=== PATIENT | male | born 1945 | race Caucasian/White ===

== ENCOUNTER 2020-09-25 20:57 | Emergency (ER) | payer MEDICARE, OTHER, SELFPAY ==
[2020-09-25 21:05] VITALS: BP 159/67; PULSE 78; RESP 18; TEMP 36.4; O2SAT 97; BMI 32.3
--- NOTE | 2020-09-25 23:12 | ED_ITS ---
HPI - Abdominal Pain General Chief Complaint: Abdominal Pain Stated Complaint: Abdominal pain Time Seen by Provider: 09/25/20 22:58 Source: patient Mode of arrival: ambulatory Limitations: no limitations History of Present Illness HPI narrative: Patient was coughing hard and noticed hernia on the right inguinal area which she had in the past but feels that is getting bigger no significant pain no vomiting no difficulty urination Related Data Previous Rx's Medication Instructions Recorded codeine-guaifenesin 5 ml PO Q6H PRN #237 ml 09/26/20 Allergies Allergy/AdvReac Type Severity Reaction Status Date / Time No Known Allergies Allergy Verified 09/25/20 21:10 Review of Systems Review of Systems Yes all other systems are reviewed and are negative Physical Exam Vital Signs: Vital Signs: Last Vital Signs Temp 98.5 F 09/25/20 23:30 Pulse 64 09/25/20 23:30 Resp 16 09/25/20 23:30 BP 137/56 L 09/25/20 23:30 Pulse Ox 99 09/25/20 23:30 Body Mass Index 32.3 Appearance: Alert. Oriented X3. No acute distress. Eyes: PERRLA, No Nystagmus ENT: Pharynx normal. Oral Mucosa moist Neck: Normal inspection. Neck supple. CVS: Normal heart rate and rhythm. Pulses normal. Respiratory: No respiratory distress. Equal air entry bilateral, no wheezing/rales/rhonchi Abdomen: Soft and nontender. Bowel sounds are present, no mass palpable, no CVA tenderness small right-sided inguinal hernia reducible nontender Skin: Skin warm and dry. Normal skin color. Normal skin turgor. Extremities: No lower extremity edema. No calf tenderness Neuro: Oriented X 3. No motor deficit. No sensory deficit. MDM - Abdominal Pain Lab Data Attestation: I reviewed the patient's lab results. Labs: Lab Results 09/25/20 Range/Units 23:32 COVID-19 (JEFFREY) Negative (Negative) COVID-19 Clin Com See Note Discharge Plan Discharge Clinical Impression: Inguinal hernia of right side without obstruction or gangrene Patient Disposition: Home, Self-Care Instructions: Inguinal Hernia (ED) Additional Instructions: Avoid straining. Follow-up with the surgeon. Report to the ER if increased swelling or pain at hernia site Push your hernia back as soon as it comes out Prescriptions: New codeine-guaifenesin 10-100 mg/5 mL liquid 5 ml PO Q6H PRN (Reason: cough) Qty: 237 RF: 0 Interventions: ED Discharge Assessment Last Done: 09/26/20 00:06 Discharge Date/Time: 09/26/20 00:20 COUNTS INCLUDE 234 BEDS AT THE [facility] Past Medical History Medical History Abdominal hernia Diabetes HTN (hypertension) Hypercholesteremia Social History Social History Smoked in Last 30 Days: No Use of substances other than those prescribed or required for medical reasons: No Advance Directives: No
[2020-09-25 23:30] VITALS: BP 137/56; PULSE 64; RESP 16; TEMP 36.9; O2SAT 99
--- NOTE | 2020-09-25 23:48 | PC.NURSE ---
Symptoms improved. provider in to assess pt. awaiting covid swab result, plan is for pt to be discharge home.
[2020-09-25 23:52] LABS: COVID-19 Test Negative (Negative); IDNOW Serial# 9DD0AD1C
[2020-09-26] MEDS: guaiFEN/Codeine SF 200/20/10ML 10 ML LIQUID 5 ML PO (00:14)
== END 2020-09-26 00:20 | disposition home or self-care (01) ==
PROVIDERS: Emergency Provider Internal Medicine
DX: R10.9 Unspecified abdominal pain (principal); Z20.822 Contact with and (suspected) exposure to COVID-19
CPT/HCPCS: 36415; 87635; 99284

== ENCOUNTER 2021-06-25 23:23 | Emergency (ER) | payer MEDICARE, OTHER, SELFPAY ==
--- NOTE | ~2021-06-25 | CT_ITS ---
EXAMINATION: CT THORACIC SPINE WITHOUT CONTRAST CT LUMBAR SPINE WITHOUT CONTRAST CLINICAL INFORMATION: Multiple falls. Rule out fracture. COMPARISON: None TECHNIQUE: Multidetector helical imaging acquired in the axial plane with generation of reformatted acquisitions. FINDINGS: No acute fracture identified. Thoracic kyphosis noted. No paraspinal soft tissue inflammatory changes are seen. Multilevel bridging endplate osteophytes visible. No high-grade central canal stenosis evident. No large disc protrusion is seen on this limited noncontrast CT examination. There is mild central canal stenosis due to a degenerative disc bulge and hypertrophic facet arthropathy at the L4-L5 level with moderate right foraminal encroachment. There is bridging ossification between the spinous processes throughout the mid to lower thoracic spine. Left lateralized endplate spurring and facet arthropathy encroach upon the left subarticular zone at the L5-S1 level with mild mass effect upon the left S1 nerve root, also contributing to moderate left foraminal encroachment without central canal stenosis. There are [id number] degenerative changes of the sacroiliac joints. The imaged portions of the bony pelvis are otherwise unremarkable. Moderate degenerative disc disease noted at the lower cervical levels. The visualized portions of the lungs demonstrate mild dependent subsegmental atelectatic changes. There is an incompletely visualized 4 mm ground-glass nodule in the right lower lobe. A small calcified granuloma is noted in the left upper lobe. There are nonspecific calcifications in the multifidus musculature throughout the thoracic levels. There is heterogeneous attenuation in the prostate gland which is enlarged, measuring 6.5 x 4.7 cm in diameter in the axial plane. Findings may be due to a prior TURP. No suspicious lytic or blastic osseous lesions are seen. CT/CT thoracic spine wo con IMPRESSION: Spondylitic changes without evidence of acute osseous injury. Thoracic kyphosis without central canal stenosis. No large disc protrusions. Mild central canal stenosis and moderate right foraminal narrowing at the L4-L5 level. Bulky endplate ossification lateralized to the left side with facet spurring at L5-S1 mildly impressing upon the left S1 nerve root with moderate left foraminal narrowing. Nonspecific 4 mm ground-glass nodule in the right lower lobe. Subcentimeter calcified granuloma in the left upper lobe. Reference: The Fleischner Society recommendations for management of incidentally detected pulmonary nodules in adults age 35 and greater are based on average nodule size and patient risk category. The recommendations do not apply to lung cancer screening, patients with immunosuppression, or patients with known primary cancer. Ground-glass Nodule: Average size < 6 mm: No routine follow up. Heterogeneous enlargement of the prostate gland. Recommend correlation with a serum PSA. Query as to whether the patient has a history of a prior TURP, given imaging findings.
--- NOTE | ~2021-06-25 | CT_ITS ---
EXAMINATION: CT HEAD WITHOUT CONTRAST CT CERVICAL SPINE WITHOUT CONTRAST CLINICAL INFORMATION: Fall. Trauma. COMPARISON: None. TECHNIQUE: Multidetector CT imaging of the head and cervical spine was performed without the use of intravenous contrast. Multiplanar reformats are reviewed. This CT examination was performed using dose optimization techniques as appropriate, variously including the following: *Automated exposure control *Adjustment of mA and/or kV according to patient size (this includes techniques or standardized protocols for targeted exams where dose is matched to indication/reason for exam; i.e. extremities or head) *Use of iterative reconstruction technique DLP: 1404 mGy-cm. FINDINGS: There is no evidence of acute intracranial hemorrhage or territorial infarction. No abnormal mass effect or midline shift is seen. Leone to white matter differentiation is well preserved. No extra-axial fluid collections are identified. There is generalized brain parenchymal volume loss, with slight disproportionate prominence of the ventricular system with respect to the cortical sulci/fissures and mild narrowing of the callosal angle. Moderate patchy subcortical and periventricular white matter low-attenuation changes, statistically related to chronic microangiopathic gliosis. Cavernous carotid calcifications. The osseous structures and soft tissues are normal. The mastoid air cells and visualized portions of the paranasal sinuses are well-aerated. Atlantooccipital alignment is maintained. The vertebral bodies and posterior elements align normally. No acute fracture or subluxation. Vertebral body heights are maintained.Prominent endplate ossified present from C4 through C7 with accompanying uncovertebral arthrosis. The paraspinal soft tissues are unremarkable. The imaged lung apices are clear CT/CT cervical spine wo con IMPRESSION: No acute intracranial pathology. No cervical spine fracture or malalignment. Moderate chronic white matter small vessel ischemic changes. 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
--- NOTE | ~2021-06-25 | CT_ITS ---
EXAMINATION: CT THORACIC SPINE WITHOUT CONTRAST CT LUMBAR SPINE WITHOUT CONTRAST CLINICAL INFORMATION: Multiple falls. Rule out fracture. COMPARISON: None TECHNIQUE: Multidetector helical imaging acquired in the axial plane with generation of reformatted acquisitions. FINDINGS: No acute fracture identified. Thoracic kyphosis noted. No paraspinal soft tissue inflammatory changes are seen. Multilevel bridging endplate osteophytes visible. No high-grade central canal stenosis evident. No large disc protrusion is seen on this limited noncontrast CT examination. There is mild central canal stenosis due to a degenerative disc bulge and hypertrophic facet arthropathy at the L4-L5 level with moderate right foraminal encroachment. There is bridging ossification between the spinous processes throughout the mid to lower thoracic spine. Left lateralized endplate spurring and facet arthropathy encroach upon the left subarticular zone at the L5-S1 level with mild mass effect upon the left S1 nerve root, also contributing to moderate left foraminal encroachment without central canal stenosis. There are [id number]-[id number] degenerative changes of the sacroiliac joints. The imaged portions of the bony pelvis are otherwise unremarkable. Moderate degenerative disc disease noted at the lower cervical levels. The visualized portions of the lungs demonstrate mild dependent subsegmental atelectatic changes. There is an incompletely visualized 4 mm ground-glass nodule in the right lower lobe. A small calcified granuloma is noted in the left upper lobe. There are nonspecific calcifications in the multifidus musculature throughout the thoracic levels. There is heterogeneous attenuation in the prostate gland which is enlarged, measuring 6.5 x 4.7 cm in diameter in the axial plane. Findings may be due to a prior TURP. No suspicious lytic or blastic osseous lesions are seen. CT/CT lumbar spine wo con IMPRESSION: Spondylitic changes without evidence of acute osseous injury. Thoracic kyphosis without central canal stenosis. No large disc protrusions. Mild central canal stenosis and moderate right foraminal narrowing at the L4-L5 level. Bulky endplate ossification lateralized to the left side with facet spurring at L5-S1 mildly impressing upon the left S1 nerve root with moderate left foraminal narrowing. Nonspecific 4 mm ground-glass nodule in the right lower lobe. Subcentimeter calcified granuloma in the left upper lobe. Reference: The Fleischner Society recommendations for management of incidentally detected pulmonary nodules in adults age 35 and greater are based on average nodule size and patient risk category. The recommendations do not apply to lung cancer screening, patients with immunosuppression, or patients with known primary cancer. Ground-glass Nodule: Average size < 6 mm: No routine follow up. Heterogeneous enlargement of the prostate gland. Recommend correlation with a serum PSA. Query as to whether the patient has a history of a prior TURP, given imaging findings.
[2021-06-25 23:58] VITALS: BP 175/89; BP 190/90; PULSE 59; PULSE 78; RESP 16; TEMP 37.2; O2SAT 92; O2SAT 95; BMI 25.5
--- NOTE | 2021-06-26 01:22 | PC.NURSE ---
REPORT AND CARE TRANSFERED TO SUNNY FU.
--- NOTE | 2021-06-26 03:40 | PC.NURSE ---
Pt off to CT on hospital bed.
--- NOTE | 2021-06-26 04:08 | PC.NURSE ---
Pt returns from CT @ this time, awaiting primary MD eval.
--- NOTE | 2021-06-26 04:54 | PC.NURSE ---
Per MD, okay to remove cervical collar as cervical spine CT was negative for fractures. Collar removed, pt assisted into a POC, provided with warm blankets. Awaiting primary MD eval.
--- NOTE | 2021-06-26 05:09 | PC.NURSE ---
at bedside for primary eval.
[2021-06-26 06:10] VITALS: BP 163/80; PULSE 71; RESP 14
[2021-06-26] MEDS: Cyclobenzaprine HCl 5 MG TABLET PO (06:56)
[2021-06-26] MEDS: Ketorolac Tromethamine 30 MG/ML VIAL 15 MG IVPUSH (06:56)
--- NOTE | 2021-06-26 07:44 | ECG_ITS ---
Test Reason : WEAKNESS Blood Pressure : / mmHG Vent. Rate : 072 BPM Atrial Rate : 072 BPM P-R Int : 186 ms QRS Dur : 078 ms QT Int : 364 ms P-R-T Axes : 000 -31 100 degrees QTc Int : 398 ms Normal sinus rhythm Left axis deviation Nonspecific ST and T wave abnormality Abnormal ECG No previous ECGs available Referred By: Brennan Guillory Electronically Signed By:KATIE TURNER
--- NOTE | 2021-06-26 07:46 | ED_ITS ---
HPI - Fall General Chief Complaint: Fall <Brennan Guillory MD - Last Filed: 06/26/21 07:54> Stated Complaint: FALL <Brennan Guillory MD - Last Filed: 06/26/21 07:54> Time Seen by Provider: 06/26/21 06:42 <Brennan Guillory MD - Last Filed: 06/26/21 07:54> Source: patient <Brennan Guillory MD - Last Filed: 06/26/21 07:54> Mode of arrival: EMS <Brennan Guillory MD - Last Filed: 06/26/21 07:54> Limitations: no limitations <Brennan Guillory MD - Last Filed: 06/26/21 07:54> History of Present Illness HPI Narrative: 75-year-old male who presents emergency department for evaluation of pain after a fall. Patient states that 2 days prior he was in his garage, he walks with a cane, he lost his balance and fell. He states he fell backwards landing on his back. He denied any head injury or loss of consciousness. He states that since that time he has been having pain diffusely throughout his back. Prior to coming to the emergency department he states that he was getting ready to go to bed. States he shot his light off, he was walking with his cane, he lost his balance and again fell backwards. States that he landed on his right side. He denied any head injury. He states that he developed moderate to severe pain in his mid and lower back. He states that he has episodes of spasm and he states the pain is 6/10 at its worst. He denied any headache, nausea, vomiting, chest pain, shortness of breath. He has not noticed any blood in his stool or dark black stools. <Brennan Guillory MD - Last Filed: 06/26/21 07:54> Related Data Home Medications: Previous Rx's Medication Instructions Recorded codeine 10 mg-guaifenesin 100 mg/5 5 ml PO Q6H PRN #237 ml 09/26/ mL oral liquid cyclobenzaprine 5 mg tablet 5 mg PO BEDTIME PRN #7 tab 06/26/21 <Brennan Guillory MD - Last Filed: 06/26/21 07:54> Allergies/Adverse Reactions: Allergies Allergy/AdvReac Type Severity Reaction Status Date / Time No Known Allergies Allergy Verified 09/25/20 21:10 <Brennan Guillory MD - Last Filed: 06/26/21 07:54> Review of Systems Review of Systems: Yes all other systems are reviewed and are negative <Brennan Guillory MD - Last Filed: 06/26/21 07:54> [facility] Past Medical History [facility] Narrative: Past medical history: See below, he also states that he has Alzheimer's, bipolar disease. Past surgical history: Hernia repair x3, pancreatic surgery, prostate surgery. Social history: He denies tobacco, alcohol and drug use. <Brennan Guillory MD - Last Filed: 06/26/21 07:54> Medical History: Medical History Abdominal hernia Diabetes HTN (hypertension) Hypercholesteremia <Brennan Guillory MD - Last Filed: 06/26/21 07:54> Social History Social History: Social History Advance Directives: No <Brennan Guillory MD - Last Filed: 06/26/21 07:54> Physical Exam Vital Signs: Vital Signs: Last Vital Signs Temp 98.4 F 06/26/21 16:03 Pulse 76 06/26/21 16:03 Resp 16 06/26/21 16:03 BP 101/71 06/26/21 16:03 Pulse Ox 96 06/26/21 16:03 BMI result Body Mass Index 25.5 <Brennan Guillory MD - Last Filed: 06/26/21 07:54> Vital Signs: Last Vital Signs Temp 98.4 F 06/26/21 16:03 Pulse 76 06/26/21 16:03 Resp 16 06/26/21 16:03 BP 101/71 06/26/21 16:03 Pulse Ox 96 06/26/21 16:03 BMI result Body Mass Index 25.5 <Sweetie Foster MD - Last Filed: 06/26/21 16:40> Const: General: cooperative and no acute distress <MD Logan Morales Last Filed: 06/26/21 07:54> Orientation/consciousness: oriented to person and oriented to place <MD Logan Carr Last Filed: 06/26/21 07:54> Limitations: no limitations <MD Logan Morales Last Filed: 06/26/21 07:54> HENMT: Head: Yes normal to inspection, Yes normocephalic and Yes atraumatic <MD Logan Morales Last Filed: 06/26/21 07:54> Ears: external ears normal <MD Logan Morales Last Filed: 06/26/21 07:54> General nose exam: Normal external nose present <MD Logan Morales Last Filed: 06/26/21 07:54> Face and sinus: Yes normal facial exam <MD Logan Morales Last Filed: 06/26/21 07:54> Mouth: Normal oral and palatal mucosa present <MD Logan Morales Last Filed: 06/26/21 07:54> Throat: Yes posterior oropharynx normal <MD Logan Morales Last Filed: 06/26/21 07:54> Eyes: General: appearance normal, both eyes and all related structures <MD Logan Morales Last Filed: 06/26/21 07:54> Pupils: Equal, round and reactive pupils present <MD Logan Morales Last Filed: 06/26/21 07:54> Neck: Neck: Yes normal visual inspection, Yes no lymphadenopathy, Yes trachea midline and Yes supple <MD Logan Morales Last Filed: 06/26/21 07:54> Chest: Chest palpation & inspection: normal inspection of the chest and normal palpation of entire chest wall <MD Logan Morales Last Filed: 06/26/21 07:54> Resp: Effort & Inspection: normal respiratory effort and able to speak in c omplete sentences <MD Logan Morales Last Filed: 06/26/21 07:54> Auscultation: clear to auscultation bilaterally <Brennan Guillory MD - Last Filed: 06/26/21 07:54> Cardio: Rate: regular rate <Brennan Guillory MD - Last Filed: 06/26/21 07:54> Rhythm: regular rhythm <MD Logan Morales Last Filed: 06/26/21 07:54> Heart sounds: S1 normal heart sound present, S2 normal heart sound present and no murmurs <MD Logan Morales Last Filed: 06/26/21 07:54> GI: Inspection: Yes normal to inspection <MD Logan Morales Last Filed: 06/26/21 07:54> Palpation (GI): Soft to palpation, nontender and no guarding <Brennan Guillory MD - Last Filed: 06/26/21 07:54> Auscultation: normal bowel sounds <MD Logan Morales Last Filed: 06/26/21 07:54> Back/Spine/Pelvis: Other: Patient has diffuse tenderness with palpation of his thoracic and lumbar spine, he does have tenderness palpation of the vertebral spine as well, there is spasm of his lumbar paraspinal muscles. <Brennan Guillory MD - Last Filed: 06/26/21 07:54> Skin: General skin exam: no rashes or lesions noted <MD Logan Morales Last Filed: 06/26/21 07:54> Neuro: General: oriented to person and oriented to place <MD Logan Morales Last Filed: 06/26/21 07:54> Cranial nerves: Yes CN's II-XII intact bilaterally and Yes Equal, round and reactive pupils present <MD Logan Morales Last Filed: 06/26/21 07:54> Cognition (Neuro): normal cognition <MD Logan Morales Last Filed: 06/26/21 07:54> Motor exam (neuro): 5/5 motor strength present throughout <MD Logan Morales Last Filed: 06/26/21 07:54> Extrem: General: Yes normal to inspection <MD Logan Morales Last Filed: 06/26/21 07:54> Psych: Appearance: grossly normal <Brennan Guillory MD - Last Filed: 06/26/21 07:54> Speech and movement: Normal speech and movement present <Brennan Guillory MD - Last Filed: 06/26/21 07:54> Affect: normal affect <Brennan Guillory MD - Last Filed: 06/26/21 07:54> Attitude: cooperative <Brennan Guillory MD - Last Filed: 06/26/21 07:54> Thought process: Normal thought process present <Brennan Guillory MD - Last Filed: 06/26/21 07:54> Thought content: Normal thought content present <Brennan Guillory MD - Last Filed: 06/26/21 07:54> Course Course Course Narrative: 75-year-old male who presents emergency department for evaluation of a fall 2 days prior and a fall prior to coming to the emergency department. The patient states that these falls or secondary to him using a cane in losing his balance. The patient injured his back 2 days ago and states that he again injured his back when he fell prior to coming to the emergency department. Physical examination did revealed diffuse tenderness with palpation of his thoracic and lumbar spine. CT scan of the head and cervical spine revealed no acute fractures. I did order laboratory evaluation to include CBC, CMP, troponin, COVID-19 12 EKG. I also ordered a CT scan of the patient's thoracic and lumbar spine. Patient's pain was treated with Toradol 15 mg IV and Flexeril 5 mg orally. At the end of my shift, 7:51 a.m. the patient's care was turned over to my colleague, Dr. Sweetie Foster. <Brennan Guillory MD - Last Filed: 06/26/21 07:54> 75-year-old male who presents emergency department for evaluation of a fall 2 days prior and a fall prior to coming to the emergency department. The patient states that these falls or secondary to him using a cane in losing his balance. The patient injured his back 2 days ago and states that he again injured his back when he fell prior to coming to the emergency department. Physical examination did revealed diffuse tenderness with palpation of his thoracic and lumbar spine. CT scan of the head and cervical spine revealed no acute fractures. I did order laboratory evaluation to include CBC, CMP, troponin, COVID-19 12 EKG. I also ordered a CT scan of the patient's thoracic and lumbar spine. Patient's pain was treated with Toradol 15 mg IV and Flexeril 5 mg orally. At the end of my shift, 7:51 a.m. the patient's care was turned over to my colleague, Dr. Sweetie Foster. I received sign-out from Dr. Guillory. Patient is eating better, pain in his decrease, 06/21. No acute findings on CT scan. Troponin 2. Pending due to Staff issues in the ED and pt being a difficult stick, and lab issues, the 2nd troponin took over 6 hrs to obtain. Pt has no CP, trop did increse but remains within normal limits <35. Patient remains asymptomatic, complaining of mild muscle spasms but otherwise no chest pain or shortness of breath. <Sweetie Foster MD - Last Filed: 06/26/21 16:40> MDM - Fall Lab Data Result diagrams: : 06/26/21 07:55 06/26/21 07:55 <Brennan Guillory MD - Last Filed: 06/26/21 07:54> Labs: Lab Results 06/26/21 06/26/21 06/26/21 Range/Units 07:55 07:55 07:55 WBC 8.2 (4.8-10.8) X10*3/uL RBC 4.58 L (4.60-5.80) X10*6/uL Hgb 14.7 (14.0-18.0) g/dl Hct 42.0 (42.0-52.0) % MCV 91.7 (80.0-98.0) fL MCH 32.1 (27.0-33.0) pg MCHC 35.0 (31.0-36.0) g/dl RDW 11.9 (11.0-16.0) % Plt Count 164 (160-400) X10*3/uL MPV 11.0 (9.4-12.4) fL Immature Gran % (Auto) 0.4 (0.0-0.4) % Neut % (Auto) 74.7 H (45-73) % Lymph % (Auto) 13.3 L (20-40) % Treasure % (Auto) 11.2 H (2-11) % Eos % (Auto) 0.2 (0-4) % Baso % (Auto) 0.2 (0-2) % Lymph # (Auto) 1.1 L (1.2-4.9) X10*3/uL Treasure # (Auto) 0.9 (0.1-1.2) X10*3/uL Eos # (Auto) 0.0 (0.0-0.4) X10*3/uL Baso # (Auto) 0.0 (0.0-0.2) X10*3/uL Abs Immat Gran (auto) 0.03 (0.00-0.03) X10*3/uL Absolute Neuts (auto) 6.1 (2.0-8.3) x10*3/uL Absolute Nucleated RBC 0.000 (0.0-0.012) X10*3/uL Nucleated RBC % (auto) 0.0 (0.0-0.2) /100WBC Sodium 139 (135-145) mmol/L Potassium 4.4 (3.3-5.1) mmol/L Chloride 103 (96-108) mmol/L Carbon Dioxide 26 (22-29) mmol/L Anion Gap 14 (12-20) BUN 14 (9-16) mg/dL Creatinine 1.11 (0.5-1.4) mg/dL Estim Creat Clear Calc 55.6 Estimated GFR > 60 Random Glucose 178 H (60-115) mg/dL Calcium 10.1 (8.4-10.2) mg/dL Total Bilirubin 0.9 (0.0-1.0) mg/dL AST 19 (5-37) U/L ALT 15 (0-40) U/L Alkaline Phosphatase 44 (39-117) U/L Troponin I High Sens 17.5 (<3.5-35.0) ng/L Total Protein 7.2 (6.5-8.0) g/dL Albumin 4.1 (3.5-5.0) g/dL Urine Color Urine Appearance Urine pH (5.0-8.0) Ur Specific [place] (1.005-1.025) Urine Protein (NEG-TRACE) MG/DL Urine Glucose (UA) (NEG) MG/DL Urine Ketones (NEG) MG/DL Urine Blood (NEG) Urine Nitrite (NEG) Ur Leukocyte Esterase (NEG) Urine RBC (0) /HPF Urine WBC (0-4) /HPF Ur Squamous Epith Cells /LPF Urine Bacteria /LPF Urine Mucus /LPF COVID-19 ([facility]) (Negative) COVID-19 Clin Com 06/26/21 06/26/21 06/26/21 Range/Units 07:55 15:33 16:06 WBC (4.8-10.8) X10*3/uL RBC (4.60-5.80) X10*6/uL Hgb (14.0-18.0) g/dl Hct (42.0-52.0) % MCV (80.0-98.0) fL MCH (27.0-33.0) pg MCHC (31.0-36.0) g/dl RDW (11.0-16.0) % Plt Count (160-400) X10*3/uL MPV (9.4-12.4) fL Immature Gran % (Auto) (0.0-0.4) % Neut % (Auto) (45-73) % Lymph % (Auto) (20-40) % Treasure % (Auto) (2-11) % Eos % (Auto) (0-4) % Baso % (Auto) (0-2) % Lymph # (Auto) (1.2-4.9) X10*3/uL Treasure # (Auto) (0.1-1.2) X10*3/uL Eos # (Auto) (0.0-0.4) X10*3/uL Baso # (Auto) (0.0-0.2) X10*3/uL Abs Immat Gran (auto) (0.00-0.03) X10*3/uL Absolute Neuts (auto) (2.0-8.3) x10*3/uL Absolute Nucleated RBC (0.0-0.012) X10*3/uL Nucleated RBC % (auto) (0.0-0.2) /100WBC Sodium (135-145) mmol/L Potassium (3.3-5.1) mmol/L Chloride (96-108) mmol/L Carbon Dioxide (22-29) mmol/L Anion Gap (12-20) BUN (9-16) mg/dL Creatinine (0.5-1.4) mg/dL Estim Creat Clear Calc Estimated GFR Random Glucose (60-115) mg/dL Calcium (8.4-10.2) mg/dL Total Bilirubin (0.0-1.0) mg/dL AST (5-37) U/L ALT (0-40) U/L Alkaline Phosphatase (39-117) U/L Troponin I High Sens 30.0 D (<3.5-35.0) ng/L Total Protein (6.5-8.0) g/dL Albumin (3.5-5.0) g/dL Urine Color DK YELLOW Urine Appearance CLEAR Urine pH 5.5 (5.0-8.0) Ur Specific [place] >= 1.030 H (1.005-1.025) Urine Protein 2+ H (NEG-TRACE) MG/DL Urine Glucose (UA) NEG (NEG) MG/DL Urine Ketones 5 (NEG) MG/DL Urine Blood NEG (NEG) Urine Nitrite NEG (NEG) Ur Leukocyte Esterase NEG (NEG) Urine RBC 0-2 (0) /HPF Urine WBC 0 (0-4) /HPF Ur Squamous Epith Cells TRACE /LPF Urine Bacteria NONE /LPF Urine Mucus 2+ /LPF COVID-19 ([facility]) Negative (Negative) COVID-19 Clin Com See Note <Brennan Guillory MD - Last Filed: 06/26/21 07:54> Lab Results 06/26/21 06/26/21 06/26/21 Range/Units 07:55 07:55 07:55 WBC 8.2 (4.8-10.8) X10*3/uL RBC 4.58 L (4.60-5.80) X10*6/uL Hgb 14.7 (14.0-18.0) g/dl Hct 42.0 (42.0-52.0) % MCV 91.7 (80.0-98.0) fL MCH 32.1 (27.0-33.0) pg MCHC 35.0 (31.0-36.0) g/dl RDW 11.9 (11.0-16.0) % Plt Count 164 (160-400) X10*3/uL MPV 11.0 (9.4-12.4) fL Immature Gran % (Auto) 0.4 (0.0-0.4) % Neut % (Auto) 74.7 H (45-73) % Lymph % (Auto) 13.3 L (20-40) % Treasure % (Auto) 11.2 H (2-11) % Eos % (Auto) 0.2 (0-4) % Baso % (Auto) 0.2 (0-2) % Lymph # (Auto) 1.1 L (1.2-4.9) X10*3/uL Treasure # (Auto) 0.9 (0.1-1.2) X10*3/uL Eos # (Auto) 0.0 (0.0-0.4) X10*3/uL Baso # (Auto) 0.0 (0.0-0.2) X10*3/uL Abs Immat Gran (auto) 0.03 (0.00-0.03) X10*3/uL Absolute Neuts (auto) 6.1 (2.0-8.3) x10*3/uL Absolute Nucleated RBC 0.000 (0.0-0.012) X10*3/uL Nucleated RBC % (auto) 0.0 (0.0-0.2) /100WBC Sodium 139 (135-145) mmol/L Potassium 4.4 (3.3-5.1) mmol/L Chloride 103 (96-108) mmol/L Carbon Dioxide 26 (22-29) mmol/L Anion Gap 14 (12-20) BUN 14 (9-16) mg/dL Creatinine 1.11 (0.5-1.4) mg/dL Estim Creat Clear Calc 55.6 Estimated GFR > 60 Random Glucose 178 H (60-115) mg/dL Calcium 10.1 (8.4-10.2) mg/dL Total Bilirubin 0.9 (0.0-1.0) mg/dL AST 19 (5-37) U/L ALT 15 (0-40) U/L Alkaline Phosphatase 44 (39-117) U/L Troponin I High Sens 17.5 (<3.5-35.0) ng/L Total Protein 7.2 (6.5-8.0) g/dL Albumin 4.1 (3.5-5.0) g/dL Urine Color Urine Appearance Urine pH (5.0-8.0) Ur Specific [place] (1.005-1.025) Urine Protein (NEG-TRACE) MG/DL Urine Glucose (UA) (NEG) MG/DL Urine Ketones (NEG) MG/DL Urine Blood (NEG) Urine Nitrite (NEG) Ur Leukocyte Esterase (NEG) Urine RBC (0) /HPF Urine WBC (0-4) /HPF Ur Squamous Epith Cells /LPF Urine Bacteria /LPF Urine Mucus /LPF COVID-19 ([facility]) (Negative) COVID-19 Clin Com 06/26/21 06/26/21 06/26/21 Range/Units 07:55 15:33 16:06 WBC (4.8-10.8) X10*3/uL RBC (4.60-5.80) X10*6/uL Hgb (14.0-18.0) g/dl Hct (42.0-52.0) % MCV (80.0-98.0) fL MCH (27.0-33.0) pg MCHC (31.0-36.0) g/dl RDW (11.0-16.0) % Plt Count (160-400) X10*3/uL MPV (9.4-12.4) fL Immature Gran % (Auto) (0.0-0.4) % Neut % (Auto) (45-73) % Lymph % (Auto) (20-40) % Treasure % (Auto) (2-11) % Eos % (Auto) (0-4) % Baso % (Auto) (0-2) % Lymph # (Auto) (1.2-4.9) X10*3/uL [place] # (Auto) (0.1-1.2) X10*3/uL Eos # (Auto) (0.0-0.4) X10*3/uL Baso # (Auto) (0.0-0.2) X10*3/uL Abs Immat Gran (auto) (0.00-0.03) X10*3/uL Absolute Neuts (auto) (2.0-8.3) x10*3/uL Absolute Nucleated RBC (0.0-0.012) X10*3/uL Nucleated RBC % (auto) (0.0-0.2) /100WBC Sodium (135-145) mmol/L Potassium (3.3-5.1) mmol/L Chloride (96-108) mmol/L Carbon Dioxide (22-29) mmol/L Anion Gap (12-20) BUN (9-16) mg/dL Creatinine (0.5-1.4) mg/dL Estim Creat Clear Calc Estimated GFR Random Glucose (60-115) mg/dL Calcium (8.4-10.2) mg/dL Total Bilirubin (0.0-1.0) mg/dL AST (5-37) U/L ALT (0-40) U/L Alkaline Phosphatase (39-117) U/L Troponin I High Sens 30.0 D (<3.5-35.0) ng/L Total Protein (6.5-8.0) g/dL Albumin (3.5-5.0) g/dL Urine Color DK YELLOW Urine Appearance CLEAR Urine pH 5.5 (5.0-8.0) Ur Specific [place] >= 1.030 H (1.005-1.025) Urine Protein 2+ H (NEG-TRACE) MG/DL Urine Glucose (UA) NEG (NEG) MG/DL Urine Ketones 5 (NEG) MG/DL Urine Blood NEG (NEG) Urine Nitrite NEG (NEG) Ur Leukocyte Esterase NEG (NEG) Urine RBC 0-2 (0) /HPF Urine WBC 0 (0-4) /HPF Ur Squamous Epith Cells TRACE /LPF Urine Bacteria NONE /LPF Urine Mucus 2+ /LPF COVID-19 ([facility]) Negative (Negative) COVID-19 Clin Com See Note <Sweetie Foster MD - Last Filed: 06/26/21 16:40> Imaging Data Brain and cervical spine CT: Radiologist's impression: FINDINGS: There is no evidence of acute intracranial hemorrhage or territorial infarction. No abnormal mass effect or midline shift is seen. [place] to white matter differentiation is well preserved. No extra-axial fluid collections are identified. There is generalized brain parenchymal volume loss, with slight disproportionate prominence of the ventricular system with respect to the cortical sulci/fissures and mild narrowing of the callosal angle. Moderate patchy subcortical and periventricular white matter low-attenuation changes, statistically related to chronic microangiopathic gliosis. Cavernous carotid calcifications. The osseous structures and soft tissues are normal. The mastoid air cells and visualized portions of the paranasal sinuses are well-aerated. Atlantooccipital alignment is maintained. The vertebral bodies and posterior elements align normally. No acute fracture or subluxation. Vertebral body heights are maintained.Prominent endplate ossified present from C4 through C7 with accompanying uncovertebral arthrosis. The paraspinal soft tissues are unremarkable. The imaged lung apices are clear ? CT/CT cervical spine wo con IMPRESSION: No acute intracranial pathology. No cervical spine fracture or malalignment. Moderate chronic white matter small vessel ischemic changes. 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 <Sweetie Foster MD - Last Filed: 06/26/21 16:40> Thoracic and lumbar spine CT: Radiologist's impression: FINDINGS: No acute fracture identified. Thoracic kyphosis noted. No paraspinal soft tissue inflammatory changes are seen. Multilevel bridging endplate osteophytes visible. No high-grade central canal stenosis evident. No large disc protrusion is seen on this limited noncontrast CT examination. There is mild central canal stenosis due to a degenerative disc bulge and hypertrophic facet arthropathy at the L4-L5 level with moderate right foraminal encroachment. There is bridging ossification between the spinous processes throughout the mid to lower thoracic spine. Left lateralized endplate spurring and facet arthropathy encroach upon the left subarticular zone at the L5-S1 level with mild mass effect upon the left S1 nerve root, also contributing to moderate left foraminal encroachment without central canal stenosis. There are [id number] degenerative changes of the sacroiliac joints. The imaged portions of the bony pelvis are otherwise unremarkable. Moderate degenerative disc disease noted at the lower cervical levels. The visualized portions of the lungs demonstrate mild dependent subsegmental atelectatic changes. There is an incompletely visualized 4 mm ground-glass nodule in the right lower lobe. A small calcified granuloma is noted in the left upper lobe. There are nonspecific calcifications in the multifidus musculature throughout the thoracic levels. There is heterogeneous attenuation in the prostate gland which is enlarged, measuring 6.5 x 4.7 cm in diameter in the axial plane. Findings may be due to a prior TURP. No suspicious lytic or blastic osseous lesions are seen. CT/CT lumbar spine wo con IMPRESSION: Spondylitic changes without evidence of acute osseous injury. Thoracic kyphosis without central canal stenosis. No large disc protrusions. ? Mild central canal stenosis and moderate right foraminal narrowing at the L4-L5 level. Bulky endplate ossification lateralized to the left side with facet spurring at L5-S1 mildly impressing upon the left S1 nerve root with moderate left foraminal narrowing. ? Nonspecific 4 mm ground-glass nodule in the right lower lobe. Subcentimeter calcified granuloma in the left upper lobe. ? Reference: The Fleischner Society recommendations for management of incidentally detected pulmonary nodules in adults age 35 and greater are based on average nodule size and patient risk category.? The recommendations do not apply to lung cancer screening, patients with immunosuppression, or patients with known primary cancer.? ? Ground-glass Nodule: Average size < 6 mm: No routine follow up. ? Heterogeneous enlargement of the prostate gland. Recommend correlation with a serum PSA. Query as to whether the patient has a history of a prior TURP, given imaging findings. <Sweetie Foster MD - Last Filed: 06/26/21 16:40> Discharge Plan Discharge Clinical Impression: Back pain <Brennan Guillory MD - Last Filed: 06/26/21 07:54> Patient Disposition: Home, Self-Care <Brennan Guillory MD - Last Filed: 06/26/21 07:54> Instructions: Fall Prevention for Older Adults (ED), Back Pain (ED) <Brennan Guillory MD - Last Filed: 06/26/21 07:54> Additional Instructions: Please follow-up with your primary care physician tomorrow. If you have any worsening or new symptoms, please return to the emergency room or call 911 <Brennan Guillory MD - Last Filed: 06/26/21 07:54> Prescriptions: New cyclobenzaprine 5 mg tablet 5 mg PO BEDTIME PRN (Reason: muscle spasm) Qty: 7 RF: 0 No Action codeine-guaifenesin 10-100 mg/5 mL liquid 5 ml PO Q6H PRN (Reason: cough) Qty: 237 RF: 0 <Brennan Guillory MD - Last Filed: 06/26/21 07:54>
[2021-06-26 08:02] LABS: MANUAL DIFF FLAG NO
[2021-06-26 08:06] LABS: Basophils Percent Auto 0.2 % (0-2); Eosinophils Percent Auto 0.2 % (0-4); Hemoglobin 14.7 g/dl (14.0-18.0); Imm Gran Abs Auto 0.03 X10*3/uL (0.00-0.03); Imm Gran Pct Auto 0.4 % (0.0-0.4); Lymphocytes Absolute Auto 1.1 X10*3/uL (1.2-4.9); Lymphocytes Percent Auto 13.3 % (20-40); Mean Corpuscular Hemoglobin 32.1 pg (27.0-33.0); Mean Corpuscular Volume 91.7 fL (80.0-98.0); Monocytes Absolute Auto 0.9 X10*3/uL (0.1-1.2); Monocytes Percent Auto 11.2 % (2-11); Neutrophils Absolute Auto 6.1 x10*3/uL (2.0-8.3); Neutrophils Percent Auto 74.7 % (45-73); Platelet Count 164 X10*3/uL (160-400); Red Blood Count 4.58 X10*6/uL (4.60-5.80); Red Cell Distribution Width 11.9 % (11.0-16.0); White Blood Count 8.2 X10*3/uL (4.8-10.8)
[2021-06-26 08:12] VITALS: BP 163/77; PULSE 71; RESP 16
[2021-06-26 08:20] LABS: COVID-19 Test Negative (Negative); IDNOW Serial# 9DD0AD1C
[2021-06-26 08:25] LABS: Troponin-I High Sensitivity 17.5 ng/L (<3.5-35.0)
[2021-06-26 08:27] LABS: Alanine Aminotransferase 15 U/L (0-40); Albumin Level 4.1 g/dL (3.5-5.0); Alkaline Phosphatase 44 U/L (39-117); Anion Gap 14 (12-20); Aspartate Amino Transferase 19 U/L (5-37); Bilirubin Total 0.9 mg/dL (0.0-1.0); Blood Urea Nitrogen 14 mg/dL (9-16); Calcium 10.1 mg/dL (8.4-10.2); Carbon Dioxide 26 mmol/L (22-29); Chloride 103 mmol/L (96-108); Creatinine Clr Calc Pharmacy 55.6; Estimated Glomerular Filt Rate > 60; Glucose Random 178 mg/dL (60-115); Potassium 4.4 mmol/L (3.3-5.1); Sodium 139 mmol/L (135-145); Total Protein 7.2 g/dL (6.5-8.0)
[2021-06-26 11:25] VITALS: BP 124/72; PULSE 65; RESP 14; O2SAT 97
[2021-06-26 16:03] VITALS: BP 101/71; PULSE 76; RESP 16; TEMP 36.9; O2SAT 96
[2021-06-26 16:15] LABS: Appearance Urine CLEAR; Color Urine DK YELLOW; Glucose Urine UA NEG (NEG); Leukocyte Esterase Urine NEG (NEG); Nitrite Urine NEG (NEG); PH 5.5 (5.0-8.0); Specific Gravity - Urine >= 1.030 (1.005-1.025); UACC Culture Trigger NO; Urine Blood NEG (NEG); Urine Ketones 5 MG/DL (NEG); Urine Protein 2+ MG/DL (NEG-TRACE)
[2021-06-26 16:24] LABS: Mucus Urine 2+ /LPF; RBC Urine 0-2 /HPF (0); Squamous Epithelial Cell Urine TRACE /LPF; WBC Urine 0 /HPF (0-4)
== END 2021-06-26 17:09 | disposition home or self-care (01) ==
PROVIDERS: Emergency Medicine Emergency Medical Services; Emergency Provider Emergency Medicine
DX: M54.9 Dorsalgia, unspecified (principal); Z91.81 History of falling; Z20.822 Contact with and (suspected) exposure to COVID-19; E11.9 Type 2 diabetes mellitus without complications; E78.5 Hyperlipidemia, unspecified
CPT/HCPCS: 36415; 70450; 72125; 72128; 72131; 80053; 81001; 84484; 85025; 87635; 93005; 96374; 99284; J1885